=== PATIENT | female | born 1950 | race Caucasian/White ===

== ENCOUNTER 2016-09-02 09:15 | Outpatient (RCR) | payer MEDICARE, OTHER ==
[2016-04-25 12:41] VITALS: BP 149/77
[~2016-09-02 09:15] MED LIST: ACETAMINOPHEN-H1 TA2 PO; ACIDOPHILUS CA1 EACH PO; ADULT LOW DOSE81 MG PO; BACLOFEN10 M1 PO; BUPROPION HCL150 MG PO; CENTRUM SILVER1 EAC1 PO; DULOXETINE30 MG PO; DULOXETINE60 MG PO; FLONASE ALLERG9.9 ML NS; GABAPENTIN TAB600 MG PO; GLUCOSAMINE CH1 EACH PO; GOOD NEIGHBOR150 MG PO; LAMOTRIGINE25 M1 PO; LEADER MELATONIN5 MG PO; LEVOTHYROXIN0.137 MG PO; LISINOPRIL10 MG PO; SIMVASTATIN20 M1 PO
== END 2016-09-30 13:19 ==
LOC: OPPGERO 09:15
DX: F33.1 Major depressive disorder, recurrent, moderate (principal); F41.1 Generalized anxiety disorder

== ENCOUNTER 2016-10-01 09:00 | Outpatient (RCR) | payer MEDICARE, OTHER ==
[2016-04-25 12:41] VITALS: BP 149/77
== END 2016-10-28 10:24 ==
LOC: OPPGERO 09:00
DX: F33.1 Major depressive disorder, recurrent, moderate (principal); F41.1 Generalized anxiety disorder

== ENCOUNTER 2016-10-29 07:38 | Outpatient (RCR) | payer MEDICARE, OTHER ==
[2016-04-25 12:41] VITALS: BP 149/77
== END 2016-11-28 15:13 ==
LOC: OPPGERO 07:38

== ENCOUNTER → 2016-11-27 | Outpatient (CLI) | payer MEDICARE, OTHER | LOC: RAD 15:44 | DX: M54.2 Cervicalgia (principal); R20.2 Paresthesia of skin ==

== ENCOUNTER 2016-12-04 09:00 | Outpatient (RCR) | payer MEDICARE, OTHER ==
[2016-04-25 12:41] VITALS: BP 149/77
== END 2016-12-09 14:53 | disposition home or self-care (01) ==
LOC: PT 09:00
DX: M47.812 Spondylosis without myelopathy or radiculopathy, cervical region (principal)

== ENCOUNTER → 2016-12-08 | Outpatient (CLI) | payer MEDICARE, OTHER ==
[2016-04-25 12:41] VITALS: BP 149/77
== END ==
LOC: RAD 11:31
DX: M47.812 Spondylosis without myelopathy or radiculopathy, cervical region (principal); M62.81 Muscle weakness (generalized); M48.50XA Collapsed vertebra, not elsewhere classified, site unspecified, initial encounter for fracture; R20.2 Paresthesia of skin

== ENCOUNTER → 2016-12-29 | Outpatient (CLI) | payer MEDICARE, OTHER ==
[2016-04-25 12:41] VITALS: BP 149/77
== END ==
LOC: LAB 14:22
DX: N30.00 Acute cystitis without hematuria (principal); B96.1 Klebsiella pneumoniae [K. pneumoniae] as the cause of diseases classified elsewhere

== ENCOUNTER 2017-06-06 13:11 | Emergency (ER) | payer MEDICARE, OTHER ==
[~2017-06-06] VITALS: Ht 162.6 cm; Wt 73.6 kg
[~2017-06-06 13:11] MED LIST changes: -CALCITRATE 3151 TAB PO; -DESYREL 50MG50 MG PO; -FISH OIL 1,2001 EAC2 PO; -FLUTICASON0.05 MG/Ac NS; -LAMOTRIGINE100 M3 PO; -MELOXICAM7.5 MG PO; -OMEPRAZOLE20 MG PO; -SINGULAIR 110 MG/TAB PO; -ZYRTEC ALLERGY10 MG PO
[2017-06-06] MEDS ORDERED: DESYREL 50MG50 MG PO (13:41)
[2017-06-06] MEDS ORDERED: LAMOTRIGINE100 M3 PO (13:42)
[2017-06-06] MEDS ORDERED: MELOXICAM7.5 MG PO (13:46)
[2017-06-06] MEDS ORDERED: SINGULAIR 110 MG/TAB PO (13:50)
[2017-06-06] MEDS ORDERED: FLUTICASON0.05 MG/Ac NS (13:52)
[2017-06-06] MEDS ORDERED: FISH OIL 1,2001 EAC2 PO (13:59)
[2017-06-06] MEDS ORDERED: ZYRTEC ALLERGY10 MG PO (13:59)
[2017-06-06] MEDS ORDERED: CALCITRATE 3151 TAB PO (14:01)
[2017-06-06] MEDS ORDERED: OMEPRAZOLE20 MG PO (15:08)
[2017-06-06 15:32] VITALS: BP 158/74
== END 2017-06-06 15:33 | disposition home or self-care (01) ==
LOC: ED 13:11
DX: I10 Essential (primary) hypertension (principal); R51 Headache; K21.9 Gastro-esophageal reflux disease without esophagitis; R53.81 Other malaise; F32.9 Major depressive disorder, single episode, unspecified; M79.7 Fibromyalgia; Z87.891 Personal history of nicotine dependence
CPT/HCPCS: C9113; J0595

== ENCOUNTER → 2017-06-06 | Outpatient (CLI) | payer MEDICARE, OTHER ==
[~2017-06-06] VITALS: Ht 162.6 cm; Wt 73.6 kg
[~2017-06-06] MED LIST changes: -ACETAMINOPHEN-H1 TA2 PO; +CALCITRATE 3151 TAB PO; +DESYREL 50MG50 MG PO; +FISH OIL 1,2001 EAC2 PO; +FLUTICASON0.05 MG/Ac NS; +LAMOTRIGINE100 M3 PO; +MELOXICAM7.5 MG PO; +NORCO 325 MG-51 TA1 PO; +OMEPRAZOLE20 MG PO; +SINGULAIR 110 MG/TAB PO; +ZYRTEC ALLERGY10 MG PO
[2017-06-06 12:52] VITALS: BP 160/76
== END ==
LOC: AMSURD 12:49
DX: R07.9 Chest pain, unspecified (principal)

== ENCOUNTER 2017-06-12 22:19 | Emergency (ER) | payer MEDICARE, OTHER ==
[~2017-06-12] VITALS: Ht 162.6 cm; Wt 72.7 kg
[~2017-06-12 22:19] MED LIST changes: +CALCITRATE 3151 TAB PO; +DESYREL 50MG50 MG PO; +FISH OIL 1,2001 EAC2 PO; +FLUTICASON0.05 MG/Ac NS; +LAMOTRIGINE100 M3 PO; +MELOXICAM7.5 MG PO; +OMEPRAZOLE20 MG PO; +SINGULAIR 110 MG/TAB PO; +ZYRTEC ALLERGY10 MG PO
[2017-06-12 23:41] VITALS: BP 134/70
== END 2017-06-12 23:41 | disposition home or self-care (01) ==
LOC: ED 22:19
DX: S01.21XA Laceration without foreign body of nose, initial encounter (principal); S46.911A Strain of unspecified muscle, fascia and tendon at shoulder and upper arm level, right arm, initial encounter; W01.198A Fall on same level from slipping, tripping and stumbling with subsequent striking against other object, initial encounter; Y92.009 Unspecified place in unspecified non-institutional (private) residence as the place of occurrence of the external cause; E03.9 Hypothyroidism, unspecified; E78.5 Hyperlipidemia, unspecified; I10 Essential (primary) hypertension; F32.9 Major depressive disorder, single episode, unspecified; F41.9 Anxiety disorder, unspecified
CPT/HCPCS: A4649

== ENCOUNTER → 2017-09-30 | Outpatient (CLI) | payer MEDICARE, OTHER | LOC: MAMMO 09:08 | DX: Z12.31 Encounter for screening mammogram for malignant neoplasm of breast (principal) ==

== ENCOUNTER → 2017-12-02 | Outpatient (CLI) | payer MEDICARE, OTHER | LOC: RAD 12:53 | DX: Z13.820 Encounter for screening for osteoporosis (principal) ==

== ENCOUNTER → 2018-06-28 | Outpatient (CLI) | payer MEDICARE, OTHER | LOC: VAS 11:49 | DX: I35.8 Other nonrheumatic aortic valve disorders (principal) ==

== ENCOUNTER → 2018-07-08 | Outpatient (CLI) | payer MEDICARE, OTHER | LOC: RAD 10:44 | DX: R91.8 Other nonspecific abnormal finding of lung field (principal); R06.00 Dyspnea, unspecified; Z90.89 Acquired absence of other organs | CPT/HCPCS: Q9967 ==

== ENCOUNTER 2018-07-28 11:00 | Outpatient (RCR) | payer MEDICARE, OTHER | END 2018-08-05 | disposition home or self-care (01) | LOC: PT | DX: M53.3 Sacrococcygeal disorders, not elsewhere classified (principal); M54.41 Lumbago with sciatica, right side; M72.2 Plantar fascial fibromatosis; M79.671 Pain in right foot; R26.9 Unspecified abnormalities of gait and mobility | CPT/HCPCS: G8978-GP; G8979-GP ==

== ENCOUNTER → 2018-08-10 | Outpatient (CLI) | payer MEDICARE, OTHER | LOC: RAD 10:05 | DX: R91.8 Other nonspecific abnormal finding of lung field (principal); J98.11 Atelectasis; R59.0 Localized enlarged lymph nodes; R06.02 Shortness of breath; Z98.890 Other specified postprocedural states | CPT/HCPCS: Q9967 ==

== ENCOUNTER 2018-08-18 11:00 | Outpatient (RCR) | payer MEDICARE, OTHER | END 2018-08-18 11:30 | disposition home or self-care (01) | LOC: PT 11:00 | DX: M53.3 Sacrococcygeal disorders, not elsewhere classified (principal); M54.41 Lumbago with sciatica, right side; M72.2 Plantar fascial fibromatosis; R26.9 Unspecified abnormalities of gait and mobility | CPT/HCPCS: G8979-GP ==

== ENCOUNTER → 2018-10-14 | Outpatient (CLI) | payer MEDICARE, OTHER | LOC: MAMMO 09:14 | DX: Z12.31 Encounter for screening mammogram for malignant neoplasm of breast (principal) ==

== ENCOUNTER 2018-12-17 22:43 | Emergency (ER) | payer MEDICARE, OTHER ==
[~2018-12-17] VITALS: Ht 162.6 cm; Wt 79.5 kg
[~2018-12-17 22:43] MED LIST changes: -DESYREL 50MG50 MG PO; +DESYREL50 MG PO
[2018-12-17] MEDS ORDERED: DESYREL 100MG100 MG PO (22:56)
[2018-12-17] MEDS ORDERED: WELLBUTRIN XL150 M2 PO (22:58)
[2018-12-20] MEDS ORDERED: AUGMENTIN 875-1 EAC1 PO (19:12)
== END 2018-12-18 00:31 | disposition home or self-care (01) ==
LOC: ED 22:43
DX: R04.0 Epistaxis (principal); F32.9 Major depressive disorder, single episode, unspecified; M79.7 Fibromyalgia; Z96.651 Presence of right artificial knee joint; Z90.712 Acquired absence of cervix with remaining uterus
CPT/HCPCS: J2370

== ENCOUNTER 2019-03-16 08:58 | Outpatient (RCR) | payer MEDICARE, OTHER ==
[2018-12-20 19:15] VITALS: BP 129/88
[~2019-03-16 08:58] MED LIST changes: +AUGMENTIN 875-1 EAC1 PO; +DESYREL 100MG100 MG PO; +WELLBUTRIN XL150 M2 PO
== END 2019-03-30 17:28 ==
LOC: OPPGERO 08:58
DX: F33.2 Major depressive disorder, recurrent severe without psychotic features (principal); F41.1 Generalized anxiety disorder; C34.90 Malignant neoplasm of unspecified part of unspecified bronchus or lung; I10 Essential (primary) hypertension; E03.9 Hypothyroidism, unspecified; E78.2 Mixed hyperlipidemia; M79.7 Fibromyalgia; Z79.899 Other long term (current) drug therapy; Z87.891 Personal history of nicotine dependence

== ENCOUNTER 2019-03-31 09:37 | Outpatient (RCR) | payer MEDICARE, OTHER ==
[2018-12-20 19:15] VITALS: BP 129/88
== END 2019-04-29 13:06 ==
LOC: OPPGERO 09:37
DX: F33.2 Major depressive disorder, recurrent severe without psychotic features (principal); F41.1 Generalized anxiety disorder; Z79.51 Long term (current) use of inhaled steroids; Z79.899 Other long term (current) drug therapy

== ENCOUNTER 2019-05-04 09:51 | Outpatient (RCR) | payer MEDICARE, OTHER ==
[2018-12-20 19:15] VITALS: BP 129/88
== END 2019-05-30 14:01 | disposition still patient (30) ==
LOC: OPPGERO 09:51
DX: F33.2 Major depressive disorder, recurrent severe without psychotic features (principal); F41.1 Generalized anxiety disorder; I10 Essential (primary) hypertension; E03.9 Hypothyroidism, unspecified; C34.12 Malignant neoplasm of upper lobe, left bronchus or lung; E78.2 Mixed hyperlipidemia; Z90.2 Acquired absence of lung [part of]

== ENCOUNTER 2019-05-31 11:30 | Outpatient (RCR) | payer MEDICARE, OTHER ==
[2018-12-20 19:15] VITALS: BP 129/88
== END 2019-06-30 15:24 | disposition still patient (30) ==
LOC: OPPGERO 11:30
DX: F33.2 Major depressive disorder, recurrent severe without psychotic features (principal); F41.1 Generalized anxiety disorder; I10 Essential (primary) hypertension; E03.9 Hypothyroidism, unspecified; E78.2 Mixed hyperlipidemia; M79.7 Fibromyalgia; C34.90 Malignant neoplasm of unspecified part of unspecified bronchus or lung; Z79.1 Long term (current) use of non-steroidal anti-inflammatories (NSAID); Z90.2 Acquired absence of lung [part of]

== ENCOUNTER 2019-07-01 08:44 | Outpatient (RCR) | payer MEDICARE, OTHER ==
[2018-12-20 19:15] VITALS: BP 129/88
== END 2019-07-27 14:27 | disposition still patient (30) ==
LOC: OPPGERO 08:44
DX: F33.2 Major depressive disorder, recurrent severe without psychotic features (principal); F41.1 Generalized anxiety disorder; C34.90 Malignant neoplasm of unspecified part of unspecified bronchus or lung; Z90.2 Acquired absence of lung [part of]; I10 Essential (primary) hypertension; E03.9 Hypothyroidism, unspecified; E78.2 Mixed hyperlipidemia; M79.7 Fibromyalgia; Z79.1 Long term (current) use of non-steroidal anti-inflammatories (NSAID); Z79.899 Other long term (current) drug therapy

== ENCOUNTER 2019-08-01 08:02 | Outpatient (RCR) | payer MEDICARE, OTHER ==
[2018-12-20 19:15] VITALS: BP 129/88
== END 2019-08-30 12:33 | disposition still patient (30) ==
LOC: OPPGERO 08:02
DX: F33.2 Major depressive disorder, recurrent severe without psychotic features (principal); F41.1 Generalized anxiety disorder; Z87.891 Personal history of nicotine dependence; C34.90 Malignant neoplasm of unspecified part of unspecified bronchus or lung; Z90.2 Acquired absence of lung [part of]; I10 Essential (primary) hypertension; E03.9 Hypothyroidism, unspecified; E78.2 Mixed hyperlipidemia; Z79.82 Long term (current) use of aspirin; Z79.899 Other long term (current) drug therapy

== ENCOUNTER 2019-09-01 10:56 | Outpatient (RCR) | payer MEDICARE, OTHER ==
[2018-12-20 19:15] VITALS: BP 129/88
== END 2019-09-30 14:05 ==
LOC: OPPGERO 10:56
DX: F33.2 Major depressive disorder, recurrent severe without psychotic features (principal); F41.1 Generalized anxiety disorder; I10 Essential (primary) hypertension; M79.7 Fibromyalgia; E03.9 Hypothyroidism, unspecified; E78.2 Mixed hyperlipidemia; Z85.118 Personal history of other malignant neoplasm of bronchus and lung; Z87.891 Personal history of nicotine dependence; Z79.899 Other long term (current) drug therapy; Z90.2 Acquired absence of lung [part of]

== ENCOUNTER 2019-10-03 07:55 | Outpatient (RCR) | payer MEDICARE, OTHER ==
[2018-12-20 19:15] VITALS: BP 129/88
== END 2019-10-28 14:27 ==
LOC: OPPGERO 07:55
DX: F33.2 Major depressive disorder, recurrent severe without psychotic features (principal); F41.1 Generalized anxiety disorder; I10 Essential (primary) hypertension; E03.9 Hypothyroidism, unspecified; E78.2 Mixed hyperlipidemia; M79.7 Fibromyalgia; Z79.82 Long term (current) use of aspirin; Z79.51 Long term (current) use of inhaled steroids; Z79.899 Other long term (current) drug therapy; Z85.118 Personal history of other malignant neoplasm of bronchus and lung; Z87.891 Personal history of nicotine dependence

== ENCOUNTER 2019-10-31 07:48 | Outpatient (RCR) | payer MEDICARE, OTHER ==
[2018-12-20 19:15] VITALS: BP 129/88
== END 2019-11-29 13:21 ==
LOC: OPPGERO 07:48
DX: F33.41 Major depressive disorder, recurrent, in partial remission (principal); F41.1 Generalized anxiety disorder; I10 Essential (primary) hypertension; E03.9 Hypothyroidism, unspecified; C34.90 Malignant neoplasm of unspecified part of unspecified bronchus or lung; M85.80 Other specified disorders of bone density and structure, unspecified site; E78.2 Mixed hyperlipidemia; M79.7 Fibromyalgia; M19.90 Unspecified osteoarthritis, unspecified site; R26.9 Unspecified abnormalities of gait and mobility; Z79.51 Long term (current) use of inhaled steroids; Z79.82 Long term (current) use of aspirin; Z87.891 Personal history of nicotine dependence; Z79.899 Other long term (current) drug therapy

== ENCOUNTER 2020-08-06 09:18 | Emergency (ER) | payer MEDICARE, OTHER ==
[~2020-08-06] VITALS: Wt 80.7 kg
[2020-08-06] MEDS ORDERED: LOSARTAN POTAS100 MG PO (09:42)
[2020-08-06 10:36] LABS: EOS # 0.2 (0.04-0.40); HEMATOCRIT 41.9 % (37.0-47.0); HEMOGLOBIN 14.1 g/dL (12.5-16.0); LYMPH# 1.7 (1.50-4.00); MEAN CELL VOLUME 89 fl (78-100); MEAN CORPUSCULAR HEMOGLOBIN 30 pg (27-31); MEAN CORPUSCULAR HGB CONC 34 g/dL (33-37); MEAN PLATELET VOLUME 9.2 fl (7.4-10.4); MONO # 0.6 (0.20-0.80); NEU # 6.1 (1.40-6.50); PLATELET COUNT 198 K/mm3 (130-400); RED BLOOD COUNT 4.71 M/mm3 (4.10-5.30); RED CELL DISTRIBUTION WIDTH 12.8 % (11.5-14.5); WHITE BLOOD COUNT 8.7 K/mm3 (4.8-10.8)
[2020-08-06 10:40] LABS: POTASSIUM 4.2 mmol/L (3.5-5.1); SODIUM 139 mmol/L (136-145)
[2020-08-06 10:41] LABS: ALBUMIN 4.2 g/dL (3.4-4.8); CALCIUM 9.2 mg/dL (8.3-10.5)
[2020-08-06 10:44] LABS: CARBON DIOXIDE 25 mmol/L (23-31); TOTAL BILIRUBIN 0.7 mg/dL (0.2-1.2)
[2020-08-06 10:46] LABS: GLUCOSE 115 mg/dL (65-105); TOTAL PROTEIN 6.6 g/dL (6.2-8.1)
[2020-08-06 10:48] LABS: AST-SGOT 52 U/L (5-34)
[2020-08-06 10:51] LABS: ALT/SGPT 60 U/L (0-55)
[2020-08-06 10:53] LABS: LIPASE 9 U/L (8-78)
[2020-08-06 11:06] LABS: TROPONIN-I < 0.03 ng/mL (<0.030)
[2020-08-06 12:07] LABS: ERYTHROCYTE SEDIMENTATION RATE 24 mm/hr (0-30)
[2020-08-06 12:27] LABS: URINE APPEARANCE HAZY; URINE BILIRUBIN NEGATIVE (NEGATIVE); URINE BLOOD NEGATIVE (NEGATIVE); URINE COLOR YELLOW; URINE GLUCOSE NEGATIVE (NEGATIVE); URINE KETONE NEGATIVE (NEGATIVE); URINE LEUKOCYTE ESTERASE 2+ (NEGATIVE); URINE NITRATE NEGATIVE (NEGATIVE); URINE PROTEIN(semi-quant) TRACE mg/dL (NEGATIVE); URINE UROBILINOGEN NORMAL (NORMAL)
[2020-08-06 12:28] LABS: URINE MUCUS PRESENT (NOT PRESENT)
[2020-08-06] MEDS ORDERED: MACROBID 100 M100 MG PO (13:37)
[2020-08-06 14:39] VITALS: BP 139/70
== END 2020-08-06 13:58 | disposition home or self-care (01) ==
LOC: ED 09:18
PROVIDERS: Physician Assistant
DX: N30.00 Acute cystitis without hematuria (principal); R53.81 Other malaise; Z20.828 Contact with and (suspected) exposure to other viral communicable diseases; Z85.118 Personal history of other malignant neoplasm of bronchus and lung
CPT/HCPCS: J7030

== ENCOUNTER 2020-10-04 09:10 | Outpatient (RCR) | payer MEDICARE, OTHER ==
[~2020-10-04 09:10] MED LIST changes: +LOSARTAN POTAS100 MG PO; +MACROBID 100 M100 MG PO
== END 2020-10-26 16:12 | disposition home or self-care (01) ==
LOC: OPPGERO 09:10
DX: F32.9 Major depressive disorder, single episode, unspecified (principal); F41.1 Generalized anxiety disorder; Z90.2 Acquired absence of lung [part of]

== ENCOUNTER 2020-10-29 10:25 | Outpatient (RCR) | payer MEDICARE, OTHER | END 2020-11-28 15:16 | disposition home or self-care (01) | LOC: OPPGERO 10:25 | DX: F33.9 Major depressive disorder, recurrent, unspecified (principal); F41.1 Generalized anxiety disorder; I10 Essential (primary) hypertension; E03.9 Hypothyroidism, unspecified; K58.9 Irritable bowel syndrome, unspecified; K59.00 Constipation, unspecified; M85.80 Other specified disorders of bone density and structure, unspecified site; E78.2 Mixed hyperlipidemia; M19.09 Primary osteoarthritis, other specified site; M79.7 Fibromyalgia; R26.9 Unspecified abnormalities of gait and mobility; Z91.410 Personal history of adult physical and sexual abuse; Z98.890 Other specified postprocedural states ==

== ENCOUNTER → 2020-11-27 | Outpatient (CLI) | payer MEDICARE, OTHER | LOC: MAMMO 14:30 | DX: Z12.31 Encounter for screening mammogram for malignant neoplasm of breast (principal) ==

== ENCOUNTER → 2020-11-27 | Outpatient (CLI) | payer MEDICARE, OTHER | LOC: RAD 14:29 → MAMMO 15:15 → RAD 15:15 | DX: M85.80 Other specified disorders of bone density and structure, unspecified site (principal) ==

== ENCOUNTER 2020-11-29 07:59 | Outpatient (RCR) | payer MEDICARE, OTHER | END 2020-12-28 15:48 | disposition home or self-care (01) | LOC: OPPGERO 07:59 | DX: F33.1 Major depressive disorder, recurrent, moderate (principal); F41.1 Generalized anxiety disorder; I10 Essential (primary) hypertension; E03.9 Hypothyroidism, unspecified; K58.9 Irritable bowel syndrome, unspecified; K59.00 Constipation, unspecified; M85.80 Other specified disorders of bone density and structure, unspecified site; E78.2 Mixed hyperlipidemia; T78.40XA Allergy, unspecified, initial encounter; M79.7 Fibromyalgia; M19.90 Unspecified osteoarthritis, unspecified site; R26.9 Unspecified abnormalities of gait and mobility; Z85.118 Personal history of other malignant neoplasm of bronchus and lung; Z98.890 Other specified postprocedural states; Z86.59 Personal history of other mental and behavioral disorders ==

== ENCOUNTER 2020-12-31 09:11 | Outpatient (RCR) | payer MEDICARE, OTHER | END 2021-01-25 15:56 | disposition home or self-care (01) | LOC: OPPGERO 09:11 | DX: F33.1 Major depressive disorder, recurrent, moderate (principal); F41.1 Generalized anxiety disorder; I10 Essential (primary) hypertension; E03.9 Hypothyroidism, unspecified; K58.9 Irritable bowel syndrome, unspecified; M85.80 Other specified disorders of bone density and structure, unspecified site; E78.2 Mixed hyperlipidemia; Z79.899 Other long term (current) drug therapy; Z91.419 Personal history of unspecified adult abuse; Z85.118 Personal history of other malignant neoplasm of bronchus and lung; Z90.2 Acquired absence of lung [part of] ==

== ENCOUNTER 2021-01-29 09:40 | Outpatient (RCR) | payer MEDICARE, OTHER | END 2021-02-27 15:23 | disposition home or self-care (01) | LOC: OPPGERO 09:40 | DX: F33.1 Major depressive disorder, recurrent, moderate (principal); F41.1 Generalized anxiety disorder; E03.9 Hypothyroidism, unspecified; I10 Essential (primary) hypertension; K58.1 Irritable bowel syndrome with constipation; M85.80 Other specified disorders of bone density and structure, unspecified site; M19.90 Unspecified osteoarthritis, unspecified site; M79.7 Fibromyalgia; E78.2 Mixed hyperlipidemia; Z98.890 Other specified postprocedural states; Z87.891 Personal history of nicotine dependence ==

== ENCOUNTER 2021-02-28 09:09 | Outpatient (RCR) | payer MEDICARE, OTHER | END 2021-03-29 22:25 | disposition home or self-care (01) | LOC: OPPGERO 09:09 | DX: F33.1 Major depressive disorder, recurrent, moderate (principal); F41.1 Generalized anxiety disorder; I10 Essential (primary) hypertension; E03.9 Hypothyroidism, unspecified; K58.1 Irritable bowel syndrome with constipation; M85.80 Other specified disorders of bone density and structure, unspecified site; E78.2 Mixed hyperlipidemia; M19.90 Unspecified osteoarthritis, unspecified site; M79.7 Fibromyalgia ==

== ENCOUNTER 2021-04-01 04:51 | Outpatient (RCR) | payer MEDICARE, OTHER | END 2021-04-30 15:50 | disposition still patient (30) | LOC: OPPGERO 04:51 | DX: F33.1 Major depressive disorder, recurrent, moderate (principal); F41.1 Generalized anxiety disorder; I10 Essential (primary) hypertension; E03.9 Hypothyroidism, unspecified; M85.80 Other specified disorders of bone density and structure, unspecified site; E78.2 Mixed hyperlipidemia; M19.90 Unspecified osteoarthritis, unspecified site; M79.7 Fibromyalgia; K58.9 Irritable bowel syndrome, unspecified; Z85.118 Personal history of other malignant neoplasm of bronchus and lung; Z98.890 Other specified postprocedural states ==

== ENCOUNTER 2021-05-01 15:40 | Outpatient (RCR) | payer MEDICARE, OTHER | END 2021-05-30 13:48 | disposition home or self-care (01) | LOC: OPPGERO 15:40 | DX: F33.1 Major depressive disorder, recurrent, moderate (principal); F41.8 Other specified anxiety disorders; F19.10 Other psychoactive substance abuse, uncomplicated; I10 Essential (primary) hypertension; E03.9 Hypothyroidism, unspecified; K58.9 Irritable bowel syndrome, unspecified; K59.00 Constipation, unspecified; M85.80 Other specified disorders of bone density and structure, unspecified site; Z79.899 Other long term (current) drug therapy; Z85.118 Personal history of other malignant neoplasm of bronchus and lung; Z90.2 Acquired absence of lung [part of] ==

== ENCOUNTER → 2021-12-03 | Outpatient (CLI) | payer MEDICARE, OTHER | LOC: MAMMO 09:57 | DX: Z12.31 Encounter for screening mammogram for malignant neoplasm of breast (principal); N63.10 Unspecified lump in the right breast, unspecified quadrant ==

== ENCOUNTER → 2021-12-03 | Outpatient (CLI) | payer MEDICARE, OTHER | LOC: VAS 10:00 | DX: I65.22 Occlusion and stenosis of left carotid artery (principal) ==

== ENCOUNTER → 2021-12-09 | Outpatient (CLI) | payer MEDICARE, OTHER | LOC: RAD 07:00 | DX: R92.8 Other abnormal and inconclusive findings on diagnostic imaging of breast (principal); N63.10 Unspecified lump in the right breast, unspecified quadrant; N63.20 Unspecified lump in the left breast, unspecified quadrant ==

== ENCOUNTER 2024-09-22 14:54 | Emergency (ER) | payer MEDICARE ==
[~2024-09-22] VITALS: Ht 162.6 cm; Wt 77.3 kg
[~2024-09-22 14:54] MED LIST changes: +BENZONATATE200 MG PO; +DOXYCYCLINE HY100 M5 PO; +NAMENDA1 TAB; +ZOFRAN ODT4 MG PO
[2024-09-22 15:05] VITALS: BP 179/85
[2024-09-22] MEDS ORDERED: NADOLOL20 M1 PO (15:13)
[2024-09-22] MEDS ORDERED: DONEPEZIL HCL5 M1 PO (15:13)
[2024-09-22 15:36] LABS: BASO # 0.03 K/mm3 (0.02-0.10); EOS # 0.09 K/mm3 (0.04-0.40); EOS % 0.8 % (1.0-5.0); HEMATOCRIT 44.2 % (37.0-47.0); HEMOGLOBIN 14.9 g/dL (12.5-16.0); LYMPH# 1.64 K/mm3 (1.50-4.00); MEAN CELL VOLUME 93 fl (78-100); MEAN CORPUSCULAR HEMOGLOBIN 31 pg (27-31); MEAN CORPUSCULAR HGB CONC 34 g/dL (33-37); MEAN PLATELET VOLUME 9.2 fl (7.4-10.4); MONO # 0.63 K/mm3 (0.20-0.80); NEU # 9.07 K/mm3 (1.40-6.50); PLATELET COUNT 228 K/mm3 (130-400); RED BLOOD COUNT 4.77 M/mm3 (4.10-5.30); RED CELL DISTRIBUTION WIDTH 12.4 % (11.5-14.5); WHITE BLOOD COUNT 11.5 K/mm3 (4.8-10.8)
[2024-09-22] MEDS ORDERED: Ondansetron 4 MG/2 ML VIAL IV ONE (15:45)
[2024-09-22] MEDS ORDERED: NS 1,000 ML IV SCH (15:45)
[2024-09-22 15:48] LABS: ALBUMIN 4.6 g/dL (3.4-4.8)
[2024-09-22 15:49] LABS: CALCIUM 10.2 mg/dL (8.3-10.5)
[2024-09-22 15:51] LABS: TOTAL PROTEIN 7.8 g/dL (6.2-8.1)
[2024-09-22 15:52] LABS: TOTAL BILIRUBIN 0.7 mg/dL (0.2-1.2)
[2024-09-22 17:12] LABS: URINE COLOR YELLOW (YELLOW)
[2024-09-22 17:14] LABS: URINE APPEARANCE CLEAR (CLEAR); URINE BILIRUBIN NEGATIVE (NEGATIVE); URINE BLOOD NEGATIVE (NEGATIVE); URINE GLUCOSE NEGATIVE (NEGATIVE); URINE KETONE NEGATIVE (NEGATIVE); URINE LEUKOCYTE ESTERASE NEGATIVE (NEGATIVE); URINE NITRATE NEGATIVE (NEGATIVE); URINE PROTEIN(semi-quant) NEGATIVE (NEGATIVE)
[2024-09-22 17:23] LABS: URINE MUCUS PRESENT (NOT PRESENT); URINE WBC 0-1 /hpf (0-3)
== END 2024-09-22 18:20 | disposition home or self-care (01) ==
LOC: ED 14:54
PROVIDERS: Nurse Practitioner
DX: R11.2 Nausea with vomiting, unspecified (principal); T44.1X5A Adverse effect of other parasympathomimetics [cholinergics], initial encounter
CPT/HCPCS: J2405; J7030